=== PATIENT | female | born 1995 | race African-American/Black ===

== ENCOUNTER 2016-10-30 11:42 | Emergency (ER) | payer OTHER ==
[~2016-10-30] VITALS: Ht 170.2 cm; Wt 58.0 kg
[2016-10-30 11:46] VITALS: BP 106/50; PULSE 83; RESP 15; TEMP 98.6; O2SAT 98
--- NOTE | 2016-10-30 12:02 | PD ---
Physical Exam Time Seen by Provider: 11:59 Narrative 21yo F c/o swollen glands in neck since Sunday. Denies sore throat. Reports headache and dizziness. Denies airway edema, difficulty swallowing, fever, vomiting. Patient stable. Patient seen in triage. Awaiting bed placement. Data Data Last Documented VS Vital Signs Date Time Temp Pulse Resp B/P Pulse Ox O2 Delivery O2 Flow Rate FiO2 10/30/16 11:46 98.6 83 15 106/50 98 MDM Supervised Visit with GOVIND: Nuzhat Karimi Oct 30, 2016 12:02
--- NOTE | 2016-10-30 12:29 | PD ---
HPI . swollen glands, headache and occasionally dizzy Chief Complaint: ENT Complaint Time Seen by Provider: 12:29 Travel History International Travel<30 days: No Contact w/Intl Traveler<30days: No Traveled to known affect area: No History of Present Illness HPI 21-year-old female with no significant past medical history here with complaints of possible swollen glands, headache and occasional dizziness. Patient says she was seen by the nurse at the [facility] clinic and told that she has swollen lymph nodes. She was told to come to the emergency department for further evaluation. She denies any cold symptoms, fever or chills. She has no other complaints. [facility] Past Medical History Medical History: Denies Significant Hx Social History Alcohol Use: No Tobacco Use: No Substance Use: No Allergies-Medications (Allergen,Severity, Reaction): Coded Allergies: No Known Allergies (Unverified , 10/30/16) Review of Systems General / Constitutional: No: Fever Eyes: No: Visual changes HENT: Positive: Headaches Cardiovascular: No: Chest Pain or Discomfort Respiratory: No: Shortness of Breath Gastrointestinal: No: Abdominal Pain Genitourinary: No: Dysuria Musculoskeletal: No: Pain Skin: No Rash Neurologic: No: Weakness Psychiatric: No: Depression Endocrine: No: Polydipsia Hematologic/Lymphatic: No: Easy Bruising Physical Exam Narrative GENERAL: AAO x 3, no acute distress, Well-nourished, well-developed patient. SKIN: Warm and dry. No visible rashes or bruising. HEAD: Normocephalic and atraumatic. EYES: No scleral icterus. No injection or drainage. EOM intact, PERRLA ENT: No nasal drainage noted. Mucous membranes pink. Airway patent. Posterior pharynx without erythema, edema or exudates. TMs normal bilaterally. Mild postnasal drip on exam NECK: Supple, trachea midline. No JVD. No lymphadenopathy CARDIOVASCULAR: Regular rate and rhythm without murmurs, gallops, or rubs. RESPIRATORY: Breath sounds equal bilaterally. No accessory muscle use. No rhonchi or rales. GASTROINTESTINAL: Visual inspection is normal EXTREMITIES: No cyanosis or edema. BACK: Nontender without obvious deformity. No CVA tenderness. PSYCH: AAO x 3, normal affect. Data Data Last Documented VS Vital Signs Date Time Temp Pulse Resp B/P Pulse Ox O2 Delivery O2 Flow Rate FiO2 10/30/16 11:46 98.6 83 15 106/50 98 MDM Medical Decision Making Medical Screen Exam Complete: Yes Emergency Medical Condition: Yes Medical Record Reviewed: Yes Differential Diagnosis allergic rhinitis, viral syndrome, less likely pharyngitis Narrative Course 21-year-old female with no significant past medical history here with complaints of possible swollen glands, headache and occasional dizziness. Patient says she was seen by the nurse at the [facility] clinic and told that she has swollen lymph nodes. She was told to come to the emergency department for further evaluation. She denies any cold symptoms, fever or chills. She has no other complaints. Patient seen and examined.No significant findings on exam. I've discussed with her that this is possibly allergic rhinitis versus a viral syndrome. Explained to her that there is not any medications that I will prescribe for this. I explained to her that a virus is self limiting. In regards to her possible allergy she can take [id number] Claritin. Patient verbalized understanding of instructions, questions were answered, and thanked me for their care. I advised them if their condition worsens, please return to the nearest emergency room for further care. Diagnosis Primary Impression: Allergic rhinitis Qualified Code: J30.9 - Allergic rhinitis, unspecified allergic rhinitis trigger, unspecified rhinitis seasonality Additional Impression: Viral syndrome Patient Instructions: General Instructions Additional Instructions: You can try [id number] Claritin daily to see if this helps with her symptoms. Please return to emergency department if your symptoms return or worsen. Follow up with your primary care provider. Disposition: 01 DISCHARGE HOME Condition: Stable Cesilia Ricardo Oct 30, 2016 12:29 Cesilia Ricardo Oct 30, 2016 12:29
== END 2016-10-30 13:01 | disposition home or self-care (01) ==
LOC: EDBD → NEPK 11:42
DX: J30.9 Allergic rhinitis, unspecified (principal); B34.9 Viral infection, unspecified; R51 Headache; R42 Dizziness and giddiness
CPT/HCPCS: 99283